=== PATIENT | male | born 1955 | race Caucasian/White ===

== ENCOUNTER 2020-04-24 08:20 | Observation (INO) ==
[2020-04-24] MEDS ORDERED: ENOXAPARIN 100 MG/ML SYRINGE SUBCUT STA (08:37)
[2020-04-24] MEDS ORDERED: ASPIRIN 325 MG TABLET PO STA (08:37)
[2020-04-24] MEDS ORDERED: NITROGLYCERIN 2% OINT 1 INCH/GM PACK TOP STA (08:37)
[2020-04-24] MEDS ORDERED: ENOXAPARIN 120 MG/0.8 ML SYRINGE SUBCUT ONE (08:41)
[2020-04-24 09:01] LABS: Basophils % 0.7 % (0.0-0.8); Hematocrit 41.5 VOL% (42.0-52.0); Hemoglobin 13.9 GM/DL (14.0-18.0); Immature Granulocytes % 0.2 %; Immature Granulocytes Absolute 0.01 #; Lymphocytes # 1.5 10*3/uL (1.4-4.0); Lymphocytes % 35.5 % (21.2-54.2); Mean Corpuscular HGB Conc 33.5 GM/DL (32-36); Mean Corpuscular Volume 96.5 FL (87-102); Monocytes % 9.2 % (1.7-12.7); Neutrophils % 53.4 % (38.7-73.9); Platelet Count 172 T/CUMM (130-400); Red Cell Distribution Width 13.1 % (9.3-17.3); White Blood Count 4.1 T/CUMM (4-12)
[2020-04-24 09:12] LABS: INR 1.1; PT Patient Result 11.9 SECS (9.8-11.9); Partial Thromboplastin Time 30.2 SECS (23.9-33.8)
[2020-04-24 09:39] LABS: Albumin 3.5 G/DL (3.4-5.0); Bilirubin,Total 0.8 MG/DL (0.2-1.0); Calcium 8.7 MG/DL (8.5-10.1); Osmolality,Calculated 281.3 MOS/KG (273-304)
[2020-04-24] MEDS ORDERED: ONDANSETRON 4 MG/2 ML VIAL IV PRN (09:42)
[2020-04-24] MEDS ORDERED: BISACODYL 5 MG TABLET PO PRN (09:42)
[2020-04-24] MEDS ORDERED: hydrALAZINE 20 MG/1 ML VIAL IV PRN (09:42)
[2020-04-24] MEDS ORDERED: MAGNESIUM SULF RIDER 4 GM in PREMIX 1 EACH IV PRN (09:42)
[2020-04-24] MEDS ORDERED: ALUMINUM/MAGNES/SIMETH MAX STR 30 ML UDCUP PO PRN (09:42)
[2020-04-24] MEDS ORDERED: MAGNESIUM SULF RIDER 2 GM in PREMIX 1 EACH IV PRN ×2 (09:42→12:33)
[2020-04-24] MEDS ORDERED: ZALEPLON 5 MG CAPSULE PO PRN (09:42)
[2020-04-24] MEDS ORDERED: SODIUM CHLORIDE 0.45% 1,000 ML IV SCH (10:00)
[2020-04-24] MEDS ORDERED: diphenhydrAMINE CAP 25 MG CAPSULE PO ONE (12:33)
[2020-04-24] MEDS ORDERED: DIAZEPAM 5 MG TABLET PO ONE (12:33)
[2020-04-24] MEDS ORDERED: POTASSIUM CHLORIDE RIDER 10 MEQ in PREMIX 1 EACH IV PRN (12:33)
[2020-04-24] MEDS ORDERED: LIDOCAINE 1% 20 ML VIAL ONE (13:28)
[2020-04-24] MEDS ORDERED: NITROGLYCERIN DRIP 50 MG/250 ML BOTTLE IV ONE (13:32)
[2020-04-24] MEDS ORDERED: VERAPAMIL 5 MG/2 ML VIAL ONE ×2 (13:32→13:52)
[2020-04-24] MEDS ORDERED: fentaNYL 100 MCG/2 ML VIAL ONE (13:33)
[2020-04-24] MEDS ORDERED: MIDAZOLAM 2 MG/2 ML VIAL ONE (13:33)
[2020-04-24] MEDS ORDERED: TICAGRELOR 90 MG TABLET ONE (14:55)
[2020-04-24] MEDS ORDERED: ACETAMINOPHEN 325 MG TABLET PO PRN (15:13)
[2020-04-24] MEDS ORDERED: diphenhydrAMINE CAP 25 MG CAPSULE PO PRN (15:51)
[2020-04-24] MEDS ORDERED: MAGNESIUM HYDROXIDE SUSP 30 ML UDCUP PO PRN (15:51)
[2020-04-24] MEDS: SODIUM CHLORIDE 0.9% 1,000 ML IV SCH (16:29)
[2020-04-24] MEDS: TICAGRELOR 90 MG TABLET PO SCH (21:21)
[2020-04-24] MEDS: MORPHINE 4 MG/1 ML VIAL IV PRN (21:24)
[2020-04-25] MEDS: SODIUM CHLORIDE 0.9% 1,000 ML IV SCH (00:43)
[2020-04-25] MEDS: MORPHINE 4 MG/1 ML VIAL IV PRN ×2 (00:57→04:53)
[2020-04-25 05:08] LABS: Basophils % 0.3 % (0.0-0.8); Eosinophils # 0.1 10*3/uL (0.0-0.87); Eosinophils % 1.4 % (0.00-10.9); Hematocrit 37.6 VOL% (42.0-52.0); Hemoglobin 12.6 GM/DL (14.0-18.0); Immature Granulocytes % 0.3 %; Immature Granulocytes Absolute 0.02 #; Lymphocytes # 1.4 10*3/uL (1.4-4.0); Lymphocytes % 23.2 % (21.2-54.2); Mean Corpuscular HGB Conc 33.5 GM/DL (32-36); Mean Corpuscular Volume 95.9 FL (87-102); Monocytes % 9.1 % (1.7-12.7); Neutrophils % 65.7 % (38.7-73.9); Platelet Count 154 T/CUMM (130-400); Red Blood Count 3.92 MC/CUMM (3.8-5.5); Red Cell Distribution Width 12.9 % (9.3-17.3); White Blood Count 5.9 T/CUMM (4-12)
[2020-04-25 05:26] LABS: Calcium 8.2 MG/DL (8.5-10.1); Osmolality,Calculated 277.4 MOS/KG (273-304)
[2020-04-25 05:35] LABS: Risk Ratio 3.03; VLDL CHOLESTEROL 43.2 MG/DL
[2020-04-25 05:38] LABS: Calcium 8.2 MG/DL (8.5-10.1); Osmolality,Calculated 279.3 MOS/KG (273-304)
[2020-04-25] MEDS ORDERED: LEVOTHYROXINE 150 MCG TABLET PO SCH (07:00)
[2020-04-25 07:31] VITALS: BP 118/58
[2020-04-25] MEDS: TICAGRELOR 90 MG TABLET PO SCH (08:20)
[2020-04-25] MEDS ORDERED: ROSUVASTATIN 20 MG TABLET PO SCH (09:00)
[2020-04-25] MEDS ORDERED: ASPIRIN EC 81 MG TABLET PO SCH (09:00)
[2020-04-25] MEDS ORDERED: PANTOPRAZOLE 40 MG TABLET PO SCH (09:00)
[2020-04-25] MEDS ORDERED: ENOXAPARIN 40 MG/0.4 ML SYRINGE SUBCUT SCH (09:00)
[2020-04-25] MEDS ORDERED: CHOLECALCIFEROL 1,000 UNIT TABLET PO SCH (09:00)
== END 2020-04-25 09:55 | disposition home or self-care (01) ==
LOC: N.EDINP 08:20 → N.ED 08:20 → N.EDINP 13:13 → N.TELEN 15:30
PROVIDERS: ADMIT Internal Medicine Cardiovascular Disease; ATTEND Internal Medicine Cardiovascular Disease
PROC: CLCCHCL (ICD-10-PCS; 2020-04-24 15:15)